=== PATIENT | female | born 1950 | race Hispanic/Latino ===

== ENCOUNTER 2018-03-11 18:47 | Emergency (ER) | payer MEDICARE, BC ==
[2018-03-11 18:52] VITALS: BMI 21.1
[2018-03-11 18:55] VITALS: TEMP 98.2
[2018-03-11] MEDS ORDERED: Sodium Chloride 0.9% 1,000 ML IV STA (19:12)
--- NOTE | 2018-03-11 19:17 | ED PDOC ---
Arrival/HPI - General Chief Complaint: GI Problem Time Seen by Provider: 03/11/18 18:57 Historian: Patient, Spouse - History of Present Illness Narrative History of Present Illness (Text): you were treated in the ED today for having nausea and loose stools intermittently for the past 3 days but otherwise without any new foods/travel/ sick contacts/headache/dizziness/difficulty breathing/chest pain/abdomen pain/ numbness/tingling/loss of limb function/pain with urination/blood in stools. 03/11/18 19:15 03/11/18 19:15 Time/Duration: Other (3 days) Symptom Onset: Gradual Symptom Course: Unchanged, Intermittent Quality: Other (no pain) Activities at Onset: Rest Context: Sitting Past Medical History - Provider Review Nursing Documentation Reviewed: Yes - Travel History Have you recently traveled outside [place] w/in the past 3 mons?: No - Infectious Disease Hx of Infectious Diseases: None - Reproductive Menopause: Yes - Cardiac Hx Hypertension: Yes Hx Peripheral Vascular Disease: Yes Other/Comment: pulmonary hypertension - Neurological Hx Paralysis: No - Hematological/Oncological Hx Blood Transfusions: No Hx Blood Transfusion Reaction: No - Musculoskeletal/Rheumatological Hx Musculoskeletal Disorders: No (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) - Psychiatric Hx Emotional Abuse: No Hx Physical Abuse: No Hx Substance Use: No - Surgical History Other/Comment: L lower lobe removal 3 years ago - Anesthesia Hx Anesthesia Reactions: Yes (OCC NAUSEA) Hx Malignant Hyperthermia: No - Suicidal Assessment Feels Threatened In Home Enviroment: No Family/Social History - Physician Review Nursing Documentation Reviewed: Yes Family/Social History: No Known Family HX Smoking Status: Never Smoked Hx Alcohol Use: No Hx Substance Use: No Allergies/Home Meds Allergies/Adverse Reactions: Allergies No Known Allergies Allergy (Verified 07/09/16 10:32) Home Medications: Home Meds Medication Instructions Recorded Confirmed Esomeprazole Magnesium [Nexium] 40 mg PO QAM 10/15/14 07/27/17 Rosuvastatin Calcium [Crestor] 10 mg PO QAM 10/15/14 07/27/17 amLODIPine [Norvasc] 5 mg PO QPM 10/15/14 07/27/17 Coenzyme Q10 [Co Q-10] 1 cap PO QAM 09/09/15 07/27/17 Aspirin [Adult Low Dose Aspirin EC] 81 mg PO QAM 06/22/16 07/27/17 Tadalafil [Adcirca] 40 mg PO QAM 06/22/16 07/27/17 Ambrisentan [Letairis] 10 mg PO DAILY 01/10/17 07/27/17 Cholecalciferol (Vitamin D3) 2,000 unit PO DAILY 01/10/17 07/27/17 [Vitamin D3] Methotrexate 20 mg PO DAILY 01/10/17 07/27/17 Review of Systems - Review of Systems Constitutional: Normal Eyes: Normal ENT: Normal Respiratory: Normal Cardiovascular: Normal Gastrointestinal: Stool Changes, Nausea Genitourinary Female: Normal Musculoskeletal: Normal Skin: Normal Neurological: Normal Endocrine: Normal Hemo/Lymphatic: Normal Psychiatric: Normal Physical Exam Vital Signs Reviewed: Yes Vital Signs Temp Pulse Resp BP Pulse Ox 03/11/18 20:32 98 H 22 121/78 99 03/11/18 18:48 98.2 F 108 H 20 115/74 96 Temperature: Afebrile Blood Pressure: Normal Pulse: Tachycardic Respiratory Rate: Normal Appearance: Positive for: Well-Appearing, Non-Toxic, Comfortable Pain Distress: None Mental Status: Positive for: Alert and Oriented X 3 - Systems Exam Head: Present: Atraumatic, Normocephalic Pupils: Present: PERRL Extroacular Muscles: Present: EOMI Conjunctiva: Present: Normal Ears: Present: Normal Mouth: Present: Moist Mucous Membranes Pharnyx: Present: Normal Nose (External): Present: Atraumatic Nose (Internal): Present: Normal Inspection Neck: Present: Normal Range of Motion Respiratory/Chest: Present: Clear to Auscultation, Good Air Exchange, Retracting Abdomen: No: Tenderness, Distention, Normal Bowel Sounds, Peritoneal Signs, Rebound, Guarding, McBurney's Point Tender, Rovsing's Sign Present, Hernias, Feeding Tubes, Ostomy Tubes, Mass/Organomegaly, Scars, Other Back: Present: Normal Inspection Upper Extremity: Present: Normal Inspection Lower Extremity: Present: Normal Inspection Neurological: Present: GCS=15, CN II-XII Intact, Speech Normal, Motor Func Grossly Intact Skin: Present: Warm, Normal Color Psychiatric: Present: Alert, Oriented x 3, Normal Insight, Normal Concentration Medical Decision Making ED Course and Treatment: you were treated in the ED today for hx of pulmonary hypertension, cholesterol, having nausea and loose stools intermittently for the past 3 days but otherwise without any new foods/travel/sick contacts/headache/dizziness/difficulty breathing/chest pain/abdomen pain/numbness/tingling/loss of limb function/pain with urination/blood in stools. You were otherwise breathing easily, pink moist lips, smiling and talking with your , good strength/sensation, alert/ oriented, walking easily, clear lungs, no abdomen tenderness, no fever temp 98.2 , fast heart rate 108 and repeat 98, stable breathing rate 20, excellent oxygen level 96% room air, stable blood pressure 115/74 which we recommend repeat in 2- 3 days primary care office to determine further treatment, you have blood tests no infection count 10, stable blood level hemoglobin 12/platelets 177, stable chemistry sodium low 129, potassium low 3.5, chloride low 95, liver AST elevated 45, Liver Alklaline Phosphatase elevated 130, magnesium low 1.4, calcium low 8.2, heart blood test negative 0.01, urine test no acute sign of infection, INR 1.77, ECG sinus rhythm with right bundle branch block, bifasicular block, intravenous fluids, zofran, magnesium, calcium, potassium, observation done and noted a low oxygen level transiently which you stated is due to your pulmonary hypertension, in the ED with improvement, had a long discussion about staying in the hospital for further observation/care/radiology imaging but you refused and cautioned for complications/ but you stated you feel improved, counselled to drink lots of fluids and advance diet as tolerated and wanted to go home with . 1. Recommend drink gatoroid and foods with minerals. 2. Recommend follow-up primary care 1-2 days to review symptoms, repeat INR and chemistry test to ensure improvement, and to ensure reduced and avoid physical activity till first clinic visit, referral to gastroenterology clinic to review symptoms and bilirubin in urine/elevated liver AST/Alkaline phosphatase to ensure no complications, referral to cardiology to review symptoms and ECG findings to ensure no complications, referral to urology clinic for protein/blood in urine to ensure no complications. 4. If any worsening pain, fever, chills, nausea, vomiting, difficulty breathing, numbness, loss of limb function, pain with urination or any medical condition then return to the ED. Reassessment Condition: Re-examined, Improved - Lab Interpretations Lab Results: 03/11/18 19:20 03/11/18 19:20 Lab Results 03/11/18 20:10: Urine Color Yellow, Urine Appearance Sl cloudy, Urine pH 5.5, Ur Specific [place] >= 1.030, Urine Protein 100 H, Urine Glucose (UA) Negative, Urine Ketones Negative, Urine Blood Large H, Urine Nitrate Negative, Urine Bilirubin Small H, Urine Urobilinogen 0.2, Ur Leukocyte Esterase Negative, Urine RBC 2 - 5, Urine WBC 5 - 10, Ur Epithelial Cells 1 - 3, Urine Bacteria Small 03/11/18 19:20: PT 20.4 H, INR 1.77 H, APTT 36.2 03/11/18 19:20: Sodium 129 L, Potassium 3.5 L, Chloride 95 L, Carbon Dioxide 21 , Anion Gap 16, BUN 16, Creatinine 0.8, Est GFR ( Amer) > 60, Est GFR ( Non-Af Amer) > 60, Random Glucose 141 H, Calcium 8.2 L, Magnesium 1.4 L, Total Bilirubin 0.7, AST 45 H, ALT 33, Alkaline Phosphatase 130 H, Lactate Dehydrogenase 874 H, Total Creatine Kinase 123, Troponin I < 0.01, Total Protein 7.0, Albumin 3.9, Globulin 3.1, Albumin/Globulin Ratio 1.2, Lipase 36 03/11/18 19:20: WBC 10.3 D, RBC 4.36, Hgb 12.3, Hct 38.8, MCV 89.0, MCH 28.2, MCHC 31.7, RDW 19.8 H, Plt Count 177, MPV 10.9, Gran % 82.6 H, Lymph % (Auto) 9.0 L, Sunflower % (Auto) 7.3 H, Eos % (Auto) 0.8 L, Baso % (Auto) 0.3, Gran # 8.55 H , Lymph # (Auto) 0.9 L, Sunflower # (Auto) 0.8 H, Eos # (Auto) 0.1, Baso # (Auto) 0.03 - Medication Orders Current Medication Orders: Lactated Ringer's (Lactated Ringer's) 1,000 mls @ 125 mls/hr IV .Q8H DILIP Discontinued Medications Sodium Chloride (Sodium Chloride 0.9%) 1,000 mls @ 999 mls/hr IV .Q1H1M STA Stop: 03/11/18 20:12 Last Admin: 03/11/18 19:40 Dose: 999 mls/hr eMAR Start Stop Document 03/11/18 19:40 GMD (Rec: 03/11/18 19:40 GMD [id number]) Intravenous Solution Start Date 03/11/18 Start Time 19:40 End Date 03/11/18 End time 20:41 Total Infusion Time 61 Calcium Gluconate 1,000 mg/ (Sodium Chloride) 110 mls @ 110 mls/hr IVPB ONCE ONE Stop: 03/11/18 21:41 Last Admin: 03/11/18 22:15 Dose: 110 mls/hr eMAR Start Stop Document 03/11/18 22:15 JOL (Rec: 03/11/18 22:16 JOL [id number]) Intravenous Solution Start Date 03/11/18 Start Time 22:15 End Date 03/11/18 End time 23:15 Total Infusion Time 60 Magnesium Sulfate/Dextrose (Magnesium Sulfate 1 Gm/100 Ml D5w) 1 gm in 100 mls @ 100 mls/hr IVPB ONCE ONE Stop: 03/11/18 21:41 Last Admin: 03/11/18 21:32 Dose: 100 mls/hr eMAR Start Stop Document 03/11/18 21:32 JOL (Rec: 03/11/18 21:32 JOL [id number]) Intravenous Solution Start Date 03/11/18 Start Time 21:32 End Date 03/11/18 End time 22:32 Total Infusion Time 60 Ondansetron HCl (Zofran Inj) 4 mg IVP STAT STA Stop: 03/11/18 19:15 Last Admin: 03/11/18 19:41 Dose: 4 mg IVP Administration Document 03/11/18 19:41 GMD (Rec: 03/11/18 19:41 GMD [id number]) Charges for Administration # of IVP Administrations 1 Potassium Chloride (K-Dur 20 Meq Er Tab) 40 meq PO STAT STA Stop: 03/11/18 20:42 Last Admin: 03/11/18 21:33 Dose: 40 meq Disposition/Present on Arrival - Present on Arrival Any Indicators Present on Arrival: No History of DVT/PE: No History of Uncontrolled Diabetes: No Urinary Catheter: No History of Decub. Ulcer: No History Surgical Site Infection Following: None - Disposition Have Diagnosis and Disposition been Completed?: Yes Diagnosis: Gastroenteritis, Hypokalemia, Hypomagnesemia, Hypocalcemia Disposition: AGAINST MEDICAL ADVICE Disposition Time: 22:47 Patient Problems: Current Active Problems Problem Status Onset Gastroenteritis Acute Hypocalcemia Acute Hypokalemia Acute Hypomagnesemia Acute Condition: IMPROVED Discharge Instructions (ExitCare): Diarrhea in Adolescents and Adults, Hypocalcemia, Hypokalemia (DC), Low Magnesium Level (DC), Gastroenteritis (ED), High Potassium Diet Additional Instructions: you were treated in the ED today for hx of pulmonary hypertension, cholesterol, having nausea and loose stools intermittently for the past 3 days but otherwise without any new foods/travel/sick contacts/headache/dizziness/difficulty breathing/chest pain/abdomen pain/numbness/tingling/loss of limb function/pain with urination/blood in stools. You were otherwise breathing easily, pink moist lips, smiling and talking with your , good strength/sensation, alert/ oriented, walking easily, clear lungs, no abdomen tenderness, no fever temp 98.2 , fast heart rate 108 and repeat 98, stable breathing rate 20, excellent oxygen level 96% room air, stable blood pressure 115/74 which we recommend repeat in 2- 3 days primary care office to determine further treatment, you have blood tests no infection count 10, stable blood level hemoglobin 12/platelets 177, stable chemistry sodium low 129, potassium low 3.5, chloride low 95, liver AST elevated 45, Liver Alklaline Phosphatase elevated 130, magnesium low 1.4, calcium low 8.2, heart blood test negative 0.01, urine test no acute sign of infection, INR 1.77, ECG sinus rhythm with right bundle branch block, bifasicular block, intravenous fluids, zofran, magnesium, calcium, potassium, observation done and noted a low oxygen level transiently which you stated is due to your pulmonary hypertension, in the ED with improvement, had a long discussion about staying in the hospital for further observation/care/radiology imaging but you refused and cautioned for complications/ but you stated you feel improved, counselled to drink lots of fluids and advance diet as tolerated and wanted to go home with . 1. Recommend drink gatoraid and foods with minerals. 2. Recommend follow-up primary care 1-2 days to review symptoms, repeat INR and chemistry test to ensure improvement, and to ensure reduced and avoid physical activity till first clinic visit, referral to gastroenterology clinic to review symptoms and bilirubin in urine/elevated liver AST/Alkaline phosphatase to ensure no complications, referral to cardiology to review symptoms and ECG findings to ensure no complications, referral to urology clinic for protein/blood in urine to ensure no complications. 4. If any worsening pain, fever, chills, nausea, vomiting, difficulty breathing, numbness, loss of limb function, pain with urination or any medical condition then return to the ED. Referrals: Sivakumar Kirby MD [Primary Care Provider] - Follow up with primary Forms: [email or web address] [facility] (Dominican)
[2018-03-11 19:50] LABS: BASO # 0.03 K/mm3 (0.0-2.0); BASO % 0.3 % (0.0-3.0); EOS # 0.1 (0.0-0.7); EOS % 0.8 % (1.5-5.0); GRAN # 8.55 (1.4-6.5); GRAN % 82.6 % (50.0-68.0); HEMOGLOBIN 12.3 g/dL (12.0-16.0); LYMPH # 0.9 (1.2-3.4); MEAN CORPUSCULAR HEMOGLOBIN 28.2 pg (25.0-35.0); MEAN CORPUSCULAR HGB CONC 31.7 g/dl (31.0-37.0); MEAN PLATELET VOLUME 10.9 fl (7.0-11.0); MONO # 0.8 (0.1-0.6); MONO % 7.3 % (1.0-6.0); RBC 4.36 10^6/uL (3.5-6.1); RED CELL DISTRIBUTION WIDTH 19.8 % (11.5-14.5); WHITE BLOOD COUNT 10.3 10^3/ul (4.5-11.0)
[2018-03-11 19:56] LABS: INR 1.77 (0.93-1.08); PARTIAL THROMBOPLASTIN TIME 36.2 Seconds (25.1-36.5); PROTHROMBIN TIME 20.4 SECONDS (9.4-12.5)
[2018-03-11 20:24] LABS: ALB/GLOB RATIO 1.2 (1.1-1.8); ALBUMIN 3.9 g/dL (3.0-4.8); ALT/SGPT 33 U/L (7-56); AST/SGOT 45 U/L (14-36); BLOOD UREA NITROGEN 16 mg/dL (7-21); CALCIUM 8.2 mg/dL (8.4-10.5); GFR AFRICAN-AMERICAN > 60; GFR NON-AFRICAN AMERICAN > 60; LIPASE 36 U/L (23-300)
[2018-03-11 20:32] LABS: PH,URINE 5.5 (4.7-8.0); URINE BILIRUBIN SMALL (NEGATIVE); URINE BLOOD LARGE (NEGATIVE); URINE GLUCOSE (UA) NEGATIVE (NEGATIVE); URINE LEUKOCYTE ESTERASE NEGATIVE Leu/uL (NEGATIVE); URINE PROTEIN 100 mg/dL (<30 mg/dL); URINE UROBILINOGEN 0.2 E.U./dL (<1 E.U./dL)
[2018-03-11 20:33] VITALS: BP 121/78; PULSE 98; RESP 22; O2SAT 99
[2018-03-11 20:33] LABS: URINE COLOR YELLOW (YELLOW)
[2018-03-11 20:34] LABS: URINE APPEARANCE SL CLOUDY (CLEAR)
[2018-03-11 20:36] LABS: TROPONIN I < 0.01 ng/mL
[2018-03-11] MEDS ORDERED: Potassium Chloride 20 mEq ER Tab PO STA (20:41)
[2018-03-11] MEDS ORDERED: Magnesium Sulfate 1 gm in D5W 1 GM/100 ML BAG IVPB ONE (20:42)
[2018-03-11 20:45] LABS: URINE BACTERIA SMALL (NEG)
[2018-03-11] MEDS ORDERED: Lactated Ringer's 1,000 ML IV SCH (20:45)
--- NOTE | 2018-03-12 21:44 | CARD ---
APPROVED REPORT EKG Measurement Heart [id number] <Conclusion> Sinus rhythm with premature atrial complexes Possible Left atrial enlargement Right bundle branch block Left posterior fascicular block Bifascicular block Anteroseptal infarct, age undetermined T wave abnormality, consider inferolateral ischemia Abnormal ECG
== END 2018-03-11 23:25 | disposition left against medical advice (07) ==
LOC: ED 18:47
DX: K52.9 Noninfective gastroenteritis and colitis, unspecified (principal); E87.6 Hypokalemia; E83.42 Hypomagnesemia; E83.51 Hypocalcemia; I10 Essential (primary) hypertension
CPT/HCPCS: 80053; 81001; 82550; 83615; 83690; 83735; 84484; 85025; 85610; 85730; 87086; 93005; 96361; 96365; 96367; 96375; 99285; J0610; J2405; J3475; J7040

== ENCOUNTER 2018-03-15 18:49 | Inpatient (IN) | payer MEDICARE, BC ==
[2018-03-15 18:50] VITALS: BMI 21.1
--- NOTE | 2018-03-15 20:22 | ED PDOC ---
Arrival/HPI - General Chief Complaint: GI Problem Time Seen by Provider: 03/15/18 18:54 Historian: Patient - History of Present Illness Narrative History of Present Illness (Text): you were treated in the ED today fo persistent diarrhea without bile or blood and sent by primary care physician for evaluation otherwise without any nausea/ vomiting/headache/dizziness/difficulty breathing/chest pain/abdomen pain/ numbness/tingling/loss of limb function/pain with urination. 03/15/18 20:22 Time/Duration: 1 week Symptom Onset: Gradual Symptom Course: Unchanged Quality: Other (no pain) Activities at Onset: Rest Context: Sitting Past Medical History - Provider Review Nursing Documentation Reviewed: Yes - Travel History Have you recently traveled outside [place] w/in the past 3 mons?: No - Infectious Disease Hx of Infectious Diseases: None - Cardiac Hx Hypertension: Yes Hx Peripheral Vascular Disease: Yes Other/Comment: pulmonary hypertension - Neurological Hx Paralysis: No - Hematological/Oncological Hx Blood Transfusions: No Hx Blood Transfusion Reaction: No - Musculoskeletal/Rheumatological Hx Musculoskeletal Disorders: No (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) - Psychiatric Hx Emotional Abuse: No Hx Physical Abuse: No Hx Substance Use: No - Surgical History Other/Comment: L lower lobe removal 3 years ago - Anesthesia Hx Anesthesia Reactions: Yes (OCC NAUSEA) Hx Malignant Hyperthermia: No - Suicidal Assessment Feels Threatened In Home Enviroment: No Family/Social History - Physician Review Nursing Documentation Reviewed: Yes Family/Social History: No Known Family HX Smoking Status: Never Smoked Hx Alcohol Use: No Hx Substance Use: No Allergies/Home Meds Allergies/Adverse Reactions: Allergies No Known Allergies Allergy (Verified 07/09/16 10:32) Home Medications: Home Meds Medication Instructions Recorded Confirmed Esomeprazole Magnesium [Nexium] 40 mg PO QAM 10/15/14 03/15/18 Rosuvastatin Calcium [Crestor] 10 mg PO QAM 10/15/14 03/15/18 amLODIPine [Norvasc] 5 mg PO QPM 10/15/14 03/15/18 Coenzyme Q10 [Co Q-10] 1 cap PO QAM 09/09/15 03/15/18 Aspirin [Adult Low Dose Aspirin EC] 81 mg PO QAM 06/22/16 03/15/18 Tadalafil [Adcirca] 40 mg PO QAM 06/22/16 03/15/18 Ambrisentan [Letairis] 10 mg PO DAILY 01/10/17 03/15/18 Cholecalciferol (Vitamin D3) 2,000 unit PO DAILY 01/10/17 03/15/18 [Vitamin D3] Methotrexate 20 mg PO DAILY 01/10/17 03/15/18 Review of Systems - Review of Systems Constitutional: Normal Eyes: Normal ENT: Normal Respiratory: Normal Cardiovascular: Normal Gastrointestinal: Diarrhea Genitourinary Female: Normal Musculoskeletal: Normal Skin: Normal Neurological: Normal Endocrine: Normal Hemo/Lymphatic: Normal Psychiatric: Normal Physical Exam Vital Signs Reviewed: Yes Vital Signs Temp Pulse Resp BP Pulse Ox 03/15/18 20:44 77 19 119/66 95 03/15/18 20:20 98.1 F 83 18 120/70 99 03/15/18 19:01 97.7 F 84 18 128/69 98 Temperature: Afebrile Blood Pressure: Hypertensive Pulse: Regular Respiratory Rate: Normal Appearance: Positive for: Well-Appearing, Non-Toxic, Comfortable Pain Distress: None Mental Status: Positive for: Alert and Oriented X 3 - Systems Exam Head: Present: Atraumatic, Normocephalic Pupils: Present: PERRL Extroacular Muscles: Present: EOMI Conjunctiva: Present: Normal Ears: Present: Normal Mouth: Present: Moist Mucous Membranes Pharnyx: Present: Normal Nose (External): Present: Atraumatic Nose (Internal): Present: Normal Inspection Neck: Present: Normal Range of Motion Respiratory/Chest: Present: Clear to Auscultation, Good Air Exchange Cardiovascular: Present: Regular Rate and Rhythm Abdomen: No: Tenderness, Distention, Normal Bowel Sounds, Peritoneal Signs, Rebound, Guarding, McBurney's Point Tender, Rovsing's Sign Present, Hernias, Feeding Tubes, Ostomy Tubes, Mass/Organomegaly, Scars, Other Back: Present: Normal Inspection Upper Extremity: Present: Normal Inspection Lower Extremity: Present: Normal Inspection Neurological: Present: GCS=15, CN II-XII Intact, Speech Normal, Motor Func Grossly Intact Skin: Present: Warm, Normal Color Psychiatric: Present: Alert, Oriented x 3, Normal Insight, Normal Concentration Medical Decision Making ED Course and Treatment: you were treated in the ED today fo persistent diarrhea without bile or blood and sent by primary care physician for evaluation otherwise without any nausea/ vomiting/headache/dizziness/difficulty breathing/chest pain/abdomen pain/ numbness/tingling/loss of limb function/pain with urination. You were otherwise breathing easily, smiling and talking easily, good strength/sensation, walking easily, clear lungs, no abdomen tenderness, pink lips, no fever temp 97.7, stable heart rate 84, stable breathing rate 18, excellent oxygen level 98% room air, elevated blood pressure 128/69 which we recommend repeat in 2-3 days primary care office to determine further treatment, you have blood tests no infection count 5, stable blood level hemoglobin 11/platelets 187, stable chemistry sodium 131 mildly low with iv fluids, potassium 3.1 mildly low and replaced, chloride 97 mildly low and iv fluids given, lipase mildly elevated 389 , heart blood test stable 0.03, stool studies pending with Dr. Bay, radiology ct abdomen/pelvis colitis, ECG similar to prior, intravenous fluids, flagyl, observation done in the ED with improvement. d/w Dr. Barriga who accepted the patient for admission, dehydration, electrolyte management. CT a/p: FINDINGS: LUNG BASES: No significant abnormality seen. PLEURAL SPACE: Stable appearance of an approximately 5 x 2 cm pleural collection in the left lung base, incompletely seen on this exam. This has enhancing margins. It does not contain gas. There is adjacent pleural thickening, which appears smooth. HEART: Heart appears moderately enlarged. Enlargement of the intrahepatic IVC and the hepatic veins. Findings can be seen in the setting of right-sided heart dysfunction. ABDOMEN: LIVER: See above. No acute abnormality identified. GALLBLADDER AND BILE DUCTS: Fluid adjacent to the gallbladder. This is most likely related to the generalized abdominal free fluid rather than representing pericholecystic fluid secondary to acute cholecystitis. No radioopaque gallstones. PANCREAS: No CT evidence of acute pancreatitis. SPLEEN: Mild splenomegaly, with the spleen measuring 14 cm. ADRENALS: No acute abnormality of the adrenal glands identified. KIDNEYS AND URETERS: Incidental multiple small fluid density probable cystic left renal lesions, all measuring less than 10 mm. (Consistent with the [employer]'s Incidental Findings Committee Report, unless the patient's specific circumstances suggest otherwise, any cystic kidney lesion less than 1.0 cm not otherwise characterized in this report as possessing suspicious or indeterminate imaging features is/are highly likely to be benign and do not require follow-up imaging or biopsy.) No acute abnormality of the kidneys identified. STOMACH AND BOWEL: Findings highly suspicious for colitis, involving the left hemicolon. There is moderate, diffuse diffuse wall thickening of the left colon. Wall thickening of the distal stomach, which could be secondary to underdistention versus focal gastritis. Colonic diverticulosis, with no evidence of acute diverticulitis. Otherwise, no significant abnormality of the bowel is identified. No evidence of small bowel obstruction. No evidence of pneumatosis intestinalis. PELVIS: APPENDIX: Normal appendix is not seen, and there is a reported history of previous appendectomy. BLADDER: No acute abnormality of the bladder identified. REPRODUCTIVE: Uterus is surgically absent. No evidence of large adnexal masses. ABDOMEN and PELVIS: INTRAPERITONEAL SPACE: Small to moderate amount of abdominal and pelvic fluid. No evidence of free air. BONES/JOINTS: Bony structures appear demineralized. SOFT TISSUES: Mild, subcutaneous edema/anasarca. VASCULATURE: Atherosclerotic calcification. No evidence of abdominal aortic aneurysm. LYMPH NODES: No evidence of diffuse lymphadenopathy. IMPRESSION: - Small to moderate amount of free fluid. - Findings highly suspicious for colitis, involving the left hemicolon. - Wall thickening of the distal stomach, which could be secondary to underdistention versus focal gastritis. - Mild, subcutaneous edema/anasarca. - Otherwise, no evidence of significant acute process. - Pleural collection with enhancing margins in the left lung base, stable compared to a prior CT chest of 02/22/2018. This could represent a chronic hemothorax or other chronic pleural collection. No associated gas. - See above for remaining findings 03/15/18 23:41 Reassessment Condition: Re-examined, Improved - Lab Interpretations Lab Results: 03/15/18 20:10 03/15/18 20:10 Lab Results 03/15/18 20:10: Sodium 131 L, Potassium 3.1 L, Chloride 97 L, Carbon Dioxide 23 , Anion Gap 13, BUN 17, Creatinine 0.7, Est GFR ( Amer) > 60, Est GFR ( Non-Af Amer) > 60, Random Glucose 112 H, Calcium 8.2 L, Total Bilirubin 0.4, AST 35, ALT 31, Alkaline Phosphatase 122, Total Creatine Kinase 145, Troponin I 0.03 D, Total Protein 6.1, Albumin 3.2, Globulin 3.0, Albumin/Globulin Ratio 1.1, Lipase 389 H 03/15/18 20:10: PT 16.2 H, INR 1.41 H, APTT 33.1 03/15/18 20:10: WBC 5.6 D, RBC 4.06, Hgb 11.3 L, Hct 34.8 L, MCV 85.7 D, MCH 27.8, MCHC 32.5, RDW 19.3 H, Plt Count 187, MPV 9.8, Gran % 63.4, Lymph % (Auto ) 21.4 L, Elk % (Auto) 9.6 H, Eos % (Auto) 5.2 H, Baso % (Auto) 0.4, Gran # 3.57, Lymph # (Auto) 1.2, Elk # (Auto) 0.5, Eos # (Auto) 0.3, Baso # (Auto) 0.02 I have reviewed the lab results: Yes - RAD Interpretation Radiology Orders: 03/15/18 21:06 ABDOMEN & PELVIS [ABD & PELVIS IV CONTRAST ONLY] [CT] Stat Clinical Documentation Specialist: Radiologist - EKG Interpretation Interpreted by ED Physician: Yes (normal sinus rhythm) Type: 12 lead EKG Comparison: Similar to previous EKG (03/11/18) - Medication Orders Current Medication Orders: Metronidazole (Flagyl) 500 mg in 100 mls @ 100 mls/hr IVPB STAT STA PRN Reason: Protocol Stop: 03/16/18 00:29 Discontinued Medications Potassium Chloride (K-Dur 20 Meq Er Tab) 40 meq PO STAT STA Stop: 03/15/18 21:34 Last Admin: 03/15/18 22:15 Dose: 40 meq Potassium Chloride (K-Dur 20 Meq Er Tab) 40 meq PO STAT STA Stop: 03/15/18 23:35 Disposition/Present on Arrival - Present on Arrival Any Indicators Present on Arrival: No History of DVT/PE: No History of Uncontrolled Diabetes: No Urinary Catheter: No History of Decub. Ulcer: No History Surgical Site Infection Following: None - Disposition Have Diagnosis and Disposition been Completed?: Yes Diagnosis: Colitis, Dehydration, Hypokalemia, Hyponatremia Disposition: HOSPITALIZED Disposition Time: 23:45 Patient Plan: Admission Condition: IMPROVED Referrals: Sivakumar Kirby MD [Primary Care Provider] - Follow up with primary Forms: [employer] ([place])
[2018-03-15 20:28] LABS: BASO # 0.02 K/mm3 (0.0-2.0); BASO % 0.4 % (0.0-3.0); EOS # 0.3 (0.0-0.7); EOS % 5.2 % (1.5-5.0); GRAN # 3.57 (1.4-6.5); GRAN % 63.4 % (50.0-68.0); HEMOGLOBIN 11.3 g/dL (12.0-16.0); LYMPH # 1.2 (1.2-3.4); LYMPH % 21.4 % (22.0-35.0); MEAN CELL VOLUME 85.7 fl (80.0-105.0); MEAN CORPUSCULAR HEMOGLOBIN 27.8 pg (25.0-35.0); MEAN CORPUSCULAR HGB CONC 32.5 g/dl (31.0-37.0); MEAN PLATELET VOLUME 9.8 fl (7.0-11.0); MONO # 0.5 (0.1-0.6); MONO % 9.6 % (1.0-6.0); RBC 4.06 10^6/uL (3.5-6.1); RED CELL DISTRIBUTION WIDTH 19.3 % (11.5-14.5); WHITE BLOOD COUNT 5.6 10^3/ul (4.5-11.0)
[2018-03-15 20:38] LABS: INR 1.41 (0.93-1.08); PROTHROMBIN TIME 16.2 SECONDS (9.4-12.5)
[2018-03-15 20:39] LABS: PARTIAL THROMBOPLASTIN TIME 33.1 Seconds (25.1-36.5)
[2018-03-15 20:47] LABS: TROPONIN I 0.03 ng/mL
[2018-03-15 20:53] LABS: ALB/GLOB RATIO 1.1 (1.1-1.8); ALBUMIN 3.2 g/dL (3.0-4.8); ALT/SGPT 31 U/L (7-56); AST/SGOT 35 U/L (14-36); BLOOD UREA NITROGEN 17 mg/dL (7-21); CALCIUM 8.2 mg/dL (8.4-10.5); GFR AFRICAN-AMERICAN > 60; GFR NON-AFRICAN AMERICAN > 60; LIPASE 389 U/L (23-300)
[2018-03-15] MEDS ORDERED: Iohexol 350 MG/100 ML VIAL ONE (21:15)
[2018-03-15] MEDS ORDERED: Potassium Chloride 20 mEq ER Tab PO STA ×2 (21:33→23:34)
--- NOTE | 2018-03-15 23:13 | CT ---
EXAM: CT Abdomen and Pelvis With Intravenous Contrast EXAM DATE/TIME: 03/15/2018 9:06 PM CLINICAL HISTORY: 67 years old, female; Signs and symptoms; Other: Diarrhea; Prior surgery; Surgery date: 6+ months; Surgery type: HX appendectomy; Additional info: 67yof loose stools, elevated lipase. TECHNIQUE: Axial computed tomography images of the abdomen and pelvis with intravenous contrast. All CT scans at this facility use one or more dose reduction techniques, viz.: automated exposure control; ma/kV adjustment per patient size (including targeted exams where dose is matched to indication; i.e. head); or iterative reconstruction technique. Coronal and sagittal reformatted images were created and reviewed. CONTRAST: 100 mL of Omnipaque 350 administered intravenously. COMPARISON: Prior CT chest of FINDINGS: LUNG BASES: No significant abnormality seen. PLEURAL SPACE: Stable appearance of an approximately 5 x 2 cm pleural collection in the left lung base, incompletely seen on this exam. This has enhancing margins. It does not contain gas. There is adjacent pleural thickening, which appears smooth. HEART: Heart appears moderately enlarged. Enlargement of the intrahepatic IVC and the hepatic veins. Findings can be seen in the setting of right-sided heart dysfunction. ABDOMEN: LIVER: See above. No acute abnormality identified. GALLBLADDER AND BILE DUCTS: Fluid adjacent to the gallbladder. This is most likely related to the generalized abdominal free fluid rather than representing pericholecystic fluid secondary to acute cholecystitis. No radioopaque gallstones. PANCREAS: No CT evidence of acute pancreatitis. SPLEEN: Mild splenomegaly, with the spleen measuring 14 cm. ADRENALS: No acute abnormality of the adrenal glands identified. KIDNEYS AND URETERS: Incidental multiple small fluid density probable cystic left renal lesions, all measuring less than 10 mm. (Consistent with the [employer]?s Incidental Findings Committee Report, unless the patient?s specific circumstances suggest otherwise, any cystic kidney lesion less than 1.0 cm not otherwise characterized in this report as possessing suspicious or indeterminate imaging features is/are highly likely to be benign and do not require follow-up imaging or biopsy.) No acute abnormality of the kidneys identified. STOMACH AND BOWEL: Findings highly suspicious for colitis, involving the left hemicolon. There is moderate, diffuse diffuse wall thickening of the left colon. Wall thickening of the distal stomach, which could be secondary to underdistention versus focal gastritis. Colonic diverticulosis, with no evidence of acute diverticulitis. Otherwise, no significant abnormality of the bowel is identified. No evidence of small bowel obstruction. No evidence of pneumatosis intestinalis. PELVIS: APPENDIX: Normal appendix is not seen, and there is a reported history of previous appendectomy. BLADDER: No acute abnormality of the bladder identified. REPRODUCTIVE: Uterus is surgically absent. No evidence of large adnexal masses. ABDOMEN and PELVIS: INTRAPERITONEAL SPACE: Small to moderate amount of abdominal and pelvic fluid. No evidence of free air. BONES/JOINTS: Bony structures appear demineralized. SOFT TISSUES: Mild, subcutaneous edema/anasarca. VASCULATURE: Atherosclerotic calcification. No evidence of abdominal aortic aneurysm. LYMPH NODES: No evidence of diffuse lymphadenopathy. IMPRESSION: - Small to moderate amount of free fluid. - Findings highly suspicious for colitis, involving the left hemicolon. - Wall thickening of the distal stomach, which could be secondary to underdistention versus focal gastritis. - Mild, subcutaneous edema/anasarca. - Otherwise, no evidence of significant acute process. - Pleural collection with enhancing margins in the left lung base, stable compared to a prior CT chest of 02/22/2018. This could represent a chronic hemothorax or other chronic pleural collection. No associated gas. - See above for remaining findings.
[2018-03-15] MEDS ORDERED: metroNIDAZOLE IV 500 mg/100 ml 500 MG/100 ML BAG IVPB STA (23:30)
[2018-03-15] MEDS ORDERED: Lactated Ringer's 1,000 ML IV SCH (23:45)
--- NOTE | 2018-03-16 01:33 | CP.PCM.HP ---
"<Kris Ya - Last Filed: 03/16/18 02:53> History of Present Illness - History of Present Illness History of Present Illness: Patient is a 67 year old female with a PMHx of severe Pulmonary HTN, venous stasis, scleroderma and rheumatoid arthritis who presents complaining of diarrhea x 6 days. Patient states the diarrhea started on Tuesday. It is associated with sharp abdominal pain when she is about to have a bowel movement. Patient tried Immodium and Pepto-Bismol for her symptoms without any relief. Patient went [facility] for the pain when it started. Per the E.R doctor, the patient refused CT abdomen/pelvis at the time. Patient was discharged from the E.R and sent home to follow up with her PMD (Dr. Kirby ) which she did. Stool samples were collected from her primary, but her primary decided that she should go to the E.R again for further evaluation. Patient did state she had one bowel movement in which she saw a red mucous substance but denies seeing anything abnormal in subsequent bowel movements. Patient denies any fever, chills, sick contacts, recent travel, changes in diet , recent antibiotic use, chronic NSAID use, or urinary symptoms. Of note, patient states that her abdomen has been more distended within the last couple of months. ROS: As stated above PMHx: Severe Pulmonary HTN, Venous Stasis, Scleroderma, Anemia PSHx: Left lower lobe lobectomy, Appendectomy Allergies: NKDA SocialHx: Denies tobacco, alcohol, or illicit drug use. FamHx: Diabetes/Heart disease in mother and father Meds: Reviewed. Anti-Pulm HTN meds not in formulary. Goes to physician weekly for PRN ProCrit. PMD: Dr. Kirby Present on Admission - Present on Admission Any Indicators Present on Admission: No Review of Systems - Review of Systems All systems: reviewed and no additional remarkable complaints except Review of Systems: As per HPI Past Patient History - Infectious Disease Hx of Infectious Diseases: None - Past Social History Smoking Status: Never Smoked - CARDIAC Hx Hypertension: Yes Hx Peripheral Vascular Disease: Yes Other/Comment: pulmonary hypertension - NEUROLOGICAL Hx Paralysis: No - HEMATOLOGICAL/ONCOLOGICAL Hx Blood Transfusions: No Hx Blood Transfusion Reaction: No - MUSCULOSKELETAL/RHEUMATOLOGICAL Hx Musculoskeletal Disorders: No (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) - PSYCHIATRIC Hx Emotional Abuse: No Hx Physical Abuse: No Hx Substance Use: No - SURGICAL HISTORY Other/Comment: L lower lobe removal 3 years ago - ANESTHESIA Hx Anesthesia Reactions: Yes (OCC NAUSEA) Hx Malignant Hyperthermia: No Meds Allergies/Adverse Reactions: Allergies Allergy/AdvReac Type Severity Reaction Status Date / Time No Known Allergies Allergy Verified 07/09/16 10:32 Physical Exam - Constitutional Appears: Non-toxic, No Acute Distress - Head Exam Head Exam: ATRAUMATIC, NORMOCEPHALIC - Eye Exam Eye Exam: Normal appearance. absent: Scleral icterus - ENT Exam ENT Exam: Mucous Membranes Moist - Neck Exam Neck exam: Negative for: Lymphadenopathy (No Cervical or supracavicular lymphadenopathy ) - Respiratory Exam Respiratory Exam: Decreased Breath Sounds (Left Lower Lung. ), Clear to Auscultation Bilateral, NORMAL BREATHING PATTERN. absent: Accessory Muscle Use , Rales, Rhonchi, Wheezes - Cardiovascular Exam Cardiovascular Exam: RRR, +S1, +S2 (Prominent ). absent: Clicks, Diastolic murmur, JVD, Rubs, +S4, Systolic Murmur - GI/Abdominal Exam GI & Abdominal Exam: Distended, Normal Bowel Sounds, Soft. absent: Firm, Guarding, Mass, Organomegaly (No Palpable Organomegaly ), Rebound, Tenderness - Extremities Exam Extremities exam: Negative for: pedal edema - Neurological Exam Neurological exam: Alert, Oriented x3 - Psychiatric Exam Psychiatric exam: Normal Affect, Normal Mood - Skin Skin Exam: Dry, Intact Additional comments: Dry, Scaly, Diffuse Purpura and Ecchymosis Results - Vital Signs Recent Vital Signs: Last Vital Signs Temp 97.9 F 03/16/18 01:23 Pulse 82 03/16/18 01:23 Resp 20 03/16/18 01:23 BP 92/52 L 03/16/18 01:23 Pulse Ox 96 03/16/18 01:23 - Labs Result Diagrams: 03/15/18 20:10 03/15/18 20:10 Assessment & Plan - Assessment and Plan (Free Text) Assessment: 67 year old female with a PMHx of severe Pulmonary HTN, venous stasis, scleroderma and rheumatoid arthritis admitted for evaluation and treatment of intractable diarrhea. CT ABD/PELVIS (ADM): Small to moderate amount of free fluid | Findings highly suspicious for colitis , involving the left hemicolon. Wall thickening of the distal stomach, which could be secondary to underdistention versus focal gastritis. Mild, subcutaneous edema/anasarca. Otherwise, no evidence of significant acute process. Pleural collection with enhancing margins in the left lung base, stable compared to a prior CT chest of 02/22/2018. This could represent a chronic hemothorax or other chronic pleural collection. No associated gas. - See Report for remaining finds. Plan: Intractable Diarrhea. DDx: Viral/Bacterial vs ischemic colits vs Malabsorption syndrome, Food Poisoning. CT Abd/Pelvis consistent with Colitis of left Ilan-diaphragm. See report for further information. ED: Flagyl, LR Stool Cultures/C.Diff/Blood Flagyl 500 Q8 Toradol PRN for pain Lactated Ringers @ 100mls/hr Electrolyte Abnormalities 2/2 diarrhea 40meQ Potassium given in E.R. Replenish as needed Monitor Anemia (Chronic) Patient has a history of Anemia in which she takes ProCrit for at times Iron | TIBC | Ferritin | Retic Count | Haptoglobin | B12/Folate| Peripheral Smear Hx of Autoimmune Disease (Scleroderma/Rheumatoid Arthritis) Toradol PRN for Pain Home Methotrexate 20mg PO Daily Lipitor 40mg Daily, Home Statin not in formulary. Hx of Pulm HTN Home Tadalafil 20mg QAM Home Ambrisentan 10mg Daily Drugs are not in formulary. Patient brought from Home Home Norvasc 5 QPM Proph Protonix/SCD's Consider Lovenox if Stool Occult is negative NPO Diet Patient discussed with Attending (Dr. Barriga) Kris Ya, PGY-1 <Daniela Barriga - Last Filed: 03/16/18 05:32> Results - Vital Signs Recent Vital Signs: Last Vital Signs Temp 98 F 03/16/18 02:37 Pulse 80 03/16/18 02:37 Resp 20 03/16/18 02:37 BP 114/66 03/16/18 02:37 Pulse Ox 98 03/16/18 01:38 - Labs Result Diagrams: 03/15/18 20:10 03/15/18 20:10 Attending/Attestation - Attestation I have personally seen and examined this patient.: Yes I have fully participated in the care of the patient.: Yes I have reviewed all pertinent clinical information: Yes Notes (Text): 04/26/18 05:16 Patient was seen when she was in 02. Agree with history, physical examination, assessment and plan. Following should be noted. Intractable diarrhoea. Pain with bowel movement. Colitis. Elevated lipase level. Electrolyte imbalance. Chronic anemia. Rheumatoid arthritis. Scleroderma. History pulmonary hypertension. Hypokalemia. Hyponatremia. History left lower lobe Lobectomy. History appendectomy. Family history DM. Family history HTN. On Letairis and Adcirca for Pulmoanry HTN."
[2018-03-16] MEDS ORDERED: Pneumococcal 23-Valent Vaccine IM ONE (02:46)
[2018-03-16 03:51] LABS: TOTAL IRON BINDING CAPACITY 196 ug/dL (265-497)
[2018-03-16 04:19] LABS: IRON 18 ug/dL (45-180)
[2018-03-16 04:21] LABS: % IRON SATURATION 9 % (20-55)
[2018-03-16] MEDS ORDERED: Dextrose 5%/0.9% NS 1,000 ML IV SCH (05:30)
[2018-03-16] MEDS ORDERED: metroNIDAZOLE IV 500 mg/100 ml 500 MG/100 ML BAG IVPB SCH (06:00)
[2018-03-16 07:17] LABS: BASO # 0.04 K/mm3 (0.0-2.0); BASO % 0.8 % (0.0-3.0); EOS # 0.3 (0.0-0.7); EOS % 7.1 % (1.5-5.0); GRAN # 2.84 (1.4-6.5); GRAN % 59.2 % (50.0-68.0); HEMOGLOBIN 11.2 g/dL (12.0-16.0); LYMPH # 0.5 (1.2-3.4); LYMPH % 10.2 % (22.0-35.0); MEAN CELL VOLUME 85.2 fl (80.0-105.0); MEAN CORPUSCULAR HEMOGLOBIN 27.3 pg (25.0-35.0); MEAN PLATELET VOLUME 9.4 fl (7.0-11.0); MONO # 1.1 (0.1-0.6); MONO % 22.7 % (1.0-6.0); RBC 4.11 10^6/uL (3.5-6.1); RED CELL DISTRIBUTION WIDTH 19.6 % (11.5-14.5); WHITE BLOOD COUNT 4.8 10^3/ul (4.5-11.0)
[2018-03-16 07:19] LABS: BASO # 0.03 K/mm3 (0.0-2.0); BASO % 0.6 % (0.0-3.0); EOS # 0.3 (0.0-0.7); GRAN # 2.76 (1.4-6.5); GRAN % 58.9 % (50.0-68.0); HEMOGLOBIN 11.2 g/dL (12.0-16.0); LYMPH # 0.5 (1.2-3.4); LYMPH % 11.5 % (22.0-35.0); MEAN CELL VOLUME 85.3 fl (80.0-105.0); MEAN CORPUSCULAR HEMOGLOBIN 27.1 pg (25.0-35.0); MEAN CORPUSCULAR HGB CONC 31.7 g/dl (31.0-37.0); MEAN PLATELET VOLUME 9.3 fl (7.0-11.0); PLATELET COUNT 184 10^3/uL (120.0-450.0); RBC 4.14 10^6/uL (3.5-6.1); RED CELL DISTRIBUTION WIDTH 19.5 % (11.5-14.5); WHITE BLOOD COUNT 4.7 10^3/ul (4.5-11.0)
[2018-03-16 07:43] LABS: ALBUMIN 2.9 g/dL (3.0-4.8); ALT/SGPT 26 U/L (7-56); AST/SGOT 40 U/L (14-36); BLOOD UREA NITROGEN 13 mg/dL (7-21); GFR AFRICAN-AMERICAN > 60; GFR NON-AFRICAN AMERICAN > 60
[2018-03-16] MEDS ORDERED: Potassium Chloride 20 mEq ER Tab PO STA (08:43)
[2018-03-16 09:10] LABS: BAND 1 % (0-2); EOSINOPHIL 9 % (0.0-3.0); LYMPHOCYTE 14 % (22.0-35.0); MONOCYTE 16 % (1.0-6.0); NEUTROPHIL 60 % (50.0-70.0)
[2018-03-16 09:11] LABS: ANISOCYTOSIS SLIGHT; PLATELET ESTIMATE NORMAL (NORMAL); POIKILOCYTOSIS SLIGHT
[2018-03-16 09:14] LABS: SCHISTOCYTES SLIGHT
[2018-03-16] MEDS: Cholecalciferol 1,000 INTLU TAB PO SCH (09:51)
[2018-03-16] MEDS: LETAIRIS 10 MG PO SCH (09:56)
[2018-03-16] MEDS: ADCIRCA 20 MG PO SCH (09:56)
[2018-03-16 13:30] LABS: FOLATE 19.5 ng/mL
[2018-03-16] MEDS: Vancomycin 25 MG/ML PO SCH ×2 (17:42→21:51)
[2018-03-17 07:31] LABS: BASO % 0.5 % (0.0-3.0); EOS % 6.4 % (1.5-5.0); GRAN % 61.1 % (50.0-68.0); HEMOGLOBIN 11.2 g/dL (12.0-16.0); LYMPH % 11.8 % (22.0-35.0); MEAN CELL VOLUME 86.7 fl (80.0-105.0); MEAN CORPUSCULAR HEMOGLOBIN 27.1 pg (25.0-35.0); MEAN CORPUSCULAR HGB CONC 31.2 g/dl (31.0-37.0); MEAN PLATELET VOLUME 9.2 fl (7.0-11.0); MONO % 20.2 % (1.0-6.0); RBC 4.14 10^6/uL (3.5-6.1); RED CELL DISTRIBUTION WIDTH 19.6 % (11.5-14.5); WHITE BLOOD COUNT 5.9 10^3/ul (4.5-11.0)
[2018-03-17 07:32] LABS: BASO # 0.03 K/mm3 (0.0-2.0); EOS # 0.4 (0.0-0.7); GRAN # 3.63 (1.4-6.5); LYMPH # 0.7 (1.2-3.4); MONO # 1.2 (0.1-0.6)
[2018-03-17 07:54] LABS: ALBUMIN 2.9 g/dL (3.0-4.8); ALT/SGPT 23 U/L (7-56); AST/SGOT 40 U/L (14-36); BLOOD UREA NITROGEN 9 mg/dL (7-21); CALCIUM 8.1 mg/dL (8.4-10.5); GFR AFRICAN-AMERICAN > 60; GFR NON-AFRICAN AMERICAN > 60
--- NOTE | 2018-03-17 08:49 | CARD ---
APPROVED REPORT EKG Measurement Heart [id number] <Conclusion> Normal sinus rhythm with sinus arrhythmia Right bundle branch block Possible Anteroseptal infarct, age- Old.
[2018-03-17 09:12] VITALS: BP 106/59; PULSE 80; RESP 18; TEMP 97.6; O2SAT 95
[2018-03-17] MEDS: LETAIRIS 10 MG PO SCH (09:42)
[2018-03-17] MEDS: ADCIRCA 20 MG PO SCH (09:43)
[2018-03-17] MEDS: Cholecalciferol 1,000 INTLU TAB PO SCH (09:46)
[2018-03-17] MEDS: Vancomycin 25 MG/ML PO SCH ×2 (09:49→14:30)
--- NOTE | 2018-03-17 10:36 | CON ---
DATE: 03/16/2018 PULMONARY CONSULTATION REFERRING PHYSICIAN: Dr. Kirby. REASON FOR CONSULT: Chronic lung disease, pulmonary hypertension, sleep apnea syndrome; history of lung cancer, requiring lobectomy, scleroderma. HISTORY OF PRESENT ILLNESS: This is a 67-year-old female with severe pulmonary hypertension, on pulmonary vasodilator, anemia, scleroderma on Rituxan; leg swelling, hypertension, also had a rheumatoid arthritis; history of lung cancer requiring lobectomy in the past; comes in because of recurrent/persistent diarrhea. Failed outpatient treatment. Presently, lying in the bed. Has short of breath with exertion. No hemoptysis. No hematemesis. No hematuria. No significant abdominal pain. Does have a leg swelling though. PAST MEDICAL HISTORY: As per history present illness. ALLERGIES: NONE KNOWN. SOCIAL HISTORY: Denying any active smoking. Denying any alcohol use. MEDICATIONS: She takes Rituxan as an outpatient from the pail tester, also presently placed on D5 normal saline 100 mL per hour, Ecotrin 81 mg daily. She is taking Letairis and Adcirca at home, Lipitor 40 mg daily, methotrexate 20 mg weekly, Norvasc 5 mg daily, Protonix 40 mg daily, vancomycin 250 four times daily started, vitamin D 2000 International Units daily. REVIEW OF SYSTEMS: No headache. No rhinitis. Not much cough. Short of breath with exertion. Has a chronic diffuse rash. No chest pain. No nausea. No vomiting. No significant abdominal pain. Has a diarrhea. Does have a leg swelling. PHYSICAL EXAMINATION: GENERAL: Lying in the bed, in no acute distress. VITAL SIGNS: Temp is 98, heart rate is 80, respiratory rate is 20, blood pressure 114/56, pulse ox 98% room air. HEENT: Small oral cavity. Crowded airway. Has a facial rash. NECK: Supple. No JVD. LUNGS: Have a few scattered rhonchi. HEART: S1 and S2. ABDOMEN: Soft, nontender. No organomegaly. EXTREMITIES: Has edema. NEUROLOGIC: Awake, alert. Follows simple command. LABORATORY DATA: Shows hemoglobin 11.2, hematocrit 35.3, WBC 4.7, platelet is 184. Sodium 132, potassium 3.2, chloride 99, bicarbonate 24, BUN 13, creatinine 0.7, glucose 83 and calcium 8. AST 40, ALT 26, alk phos is 113, albumin is 2.9. Vitamin B12 is over 1000, folate is 19.5 and ferritin 155. She has a CAT scan of the abdomen done, which shows [id number] amount of free fluid, highly suspicious of colitis involving the left hemicolon; wall thickening of the distal stomach, which could be secondary to underdistention versus focal gastritis, mild subcutaneous edema and anasarca. There is some enhancing margin of the left lung base, which seems stable compared to prior CT. . IMPRESSION AND PLAN: Colitis with severe diarrhea, history of lung cancer requiring lobectomy in the past, chronic lung disease, pulmonary hypertension, scleroderma, rheumatoid arthritis, anemia, diffuse chronic rash, immunocompromise, on methotrexate and also on Rituxan as an outpatient. Spoke to nursing staff. Also spoke to at bedside. All the questions answered. She also has sleep apnea syndrome, but refusing to use continuous positive airway pressure and bilevel positive airway pressure, understands risk-benefit ratio. We will restart her Adcirca and Letairis. GI consult. Continue IV fluids. Careful with fluid overloaded and shortness of breath because of severe pulmonary hypertension. Follow up labs in the morning. Thank you and we will follow with you. Giorgi Ramirez MD
--- NOTE | 2018-03-17 12:06 | CP.PCM.DIS ---
<Angela Castaneda - Last Filed: 03/17/18 13:22> Provider - Provider Date of Admission: 03/15/18 23:46 Attending physician: Melita Funez MD Primary care physician: Sivakumar Kirby MD Consults: GI: Kathleen Pulmonary: James Time Spent in preparation of Discharge (in minutes): 32 Hospital Course - Lab Results Lab Results: Most Recent Lab Values WBC 5.9 10^3/ul (4.5-11.0) D 03/17/18 07:00 RBC 4.14 10^6/uL (3.5-6.1) 03/17/18 07:00 Hgb 11.2 g/dL (12.0-16.0) L 03/17/18 07:00 Hct 35.9 % (36.0-48.0) L 03/17/18 07:00 MCV 86.7 fl (80.0-105.0) 03/17/18 07:00 MCH 27.1 pg (25.0-35.0) 03/17/18 07:00 MCHC 31.2 g/dl (31.0-37.0) 03/17/18 07:00 RDW 19.6 % (11.5-14.5) H 03/17/18 07:00 Plt Count 209 10^3/uL (120.0-450.0) 03/17/18 07:00 MPV 9.2 fl (7.0-11.0) 03/17/18 07:00 Gran % 61.1 % (50.0-68.0) 03/17/18 07:00 Lymph % (Auto) 11.8 % (22.0-35.0) L 03/17/18 07:00 Story % (Auto) 20.2 % (1.0-6.0) H 03/17/18 07:00 Eos % (Auto) 6.4 % (1.5-5.0) H 03/17/18 07:00 Baso % (Auto) 0.5 % (0.0-3.0) 03/17/18 07:00 Gran # 3.63 (1.4-6.5) 03/17/18 07:00 Lymph # (Auto) 0.7 (1.2-3.4) L 03/17/18 07:00 Story # (Auto) 1.2 (0.1-0.6) H 03/17/18 07:00 Eos # (Auto) 0.4 (0.0-0.7) 03/17/18 07:00 Baso # (Auto) 0.03 K/mm3 (0.0-2.0) 03/17/18 07:00 Neutrophils % (Manual) 60 % (50.0-70.0) 03/16/18 07:00 Band Neutrophils % 1 % (0-2) 03/16/18 07:00 Lymphocytes % (Manual) 14 % (22.0-35.0) L 03/16/18 07:00 Monocytes % (Manual) 16 % (1.0-6.0) H 03/16/18 07:00 Eosinophils % (Manual) 9 % (0.0-3.0) H 03/16/18 07:00 Platelet Evaluation Normal (NORMAL) 03/16/18 07:00 Poikilocytosis (manual Slight 03/16/18 07:00 Anisocytosis (manual) Slight 03/16/18 07:00 Schistocytes Slight 03/16/18 07:00 Retic Count 1.22 % (0.5-1.5) 03/16/18 07:00 Haptoglobin 114.0 mg/dL (30.0-200.0) 03/16/18 07:00 PT 16.2 SECONDS (9.4-12.5) H 03/15/18 20:10 INR 1.41 (0.93-1.08) H 03/15/18 20:10 APTT 33.1 Seconds (25.1-36.5) 03/15/18 20:10 Sodium 136 mmol/L (132-148) 03/17/18 07:00 Potassium 3.6 mmol/L (3.6-5.0) 03/17/18 07:00 Chloride 102 mmol/L (98-107) 03/17/18 07:00 Carbon Dioxide 26 mmol/L (21-33) 03/17/18 07:00 Anion Gap 11 (10-20) 03/17/18 07:00 BUN 9 mg/dL (7-21) 03/17/18 07:00 Creatinine 0.6 mg/dl (0.7-1.2) L 03/17/18 07:00 Est GFR ( Amer) > 60 03/17/18 07:00 Est GFR (Non-Af Amer) > 60 03/17/18 07:00 Random Glucose 89 mg/dL (70-110) 03/17/18 07:00 Calcium 8.1 mg/dL (8.4-10.5) L 03/17/18 07:00 Iron 18 ug/dL (45-180) L 03/15/18 20:10 TIBC 196 ug/dL (265-497) L 03/15/18 20:10 % Saturation 9 % (20-55) L 03/15/18 20:10 Ferritin 155.0 ng/mL 03/15/18 20:10 Total Bilirubin 0.4 mg/dL (0.2-1.3) 03/17/18 07:00 AST 40 U/L (14-36) H 03/17/18 07:00 ALT 23 U/L (7-56) 03/17/18 07:00 Alkaline Phosphatase 102 U/L (38-126) 03/17/18 07:00 Total Creatine Kinase 145 U/L (35-230) 03/15/18 20:10 Troponin I 0.03 ng/mL D 03/15/18 20:10 Total Protein 5.9 g/dL (5.8-8.3) 03/17/18 07:00 Albumin 2.9 g/dL (3.0-4.8) L 03/17/18 07:00 Globulin 3.0 gm/dL 03/17/18 07:00 Albumin/Globulin Ratio 1.0 (1.1-1.8) L 03/17/18 07:00 Lipase 389 U/L (23-300) H 03/15/18 20:10 Vitamin B12 > 1000 pg/mL (239-931) H 03/15/18 20:10 Folate 19.5 ng/mL 03/15/18 20:10 Stool Occult Blood Positive (NEGATIVE) H 03/16/18 21:30 - Hospital Course Hospital Course: History of Present Illness: Patient is a 67 year old female with a PMHx of severe Pulmonary HTN, venous stasis, scleroderma and rheumatoid arthritis who presents complaining of diarrhea x 6 days. Patient states the diarrhea started on Tuesday. It is associated with sharp abdominal pain when she is about to have a bowel movement. Patient tried Immodium and Pepto-Bismol for her symptoms without any relief. Patient went [facility] for the pain when it started. Per the E.R doctor, the patient refused CT abdomen/pelvis at the time. Patient was discharged from the E.R and sent home to follow up with her PMD (Dr. Kirby ) which she did. Stool samples were collected from her primary, but her primary decided that she should go to the E.R again for further evaluation. Patient did state she had one bowel movement in which she saw a red mucous substance but denies seeing anything abnormal in subsequent bowel movements. Patient denies any fever, chills, sick contacts, recent travel, changes in diet , recent antibiotic use, chronic NSAID use, or urinary symptoms. Of note, patient states that her abdomen has been more distended within the last couple of months. Patient reported taking antibiotics recently for sinusitis, unsure which one prior to onset of symptoms. Hospital Course: Patient was admitted for C diff colitis. C diff collected outpatient was positive. Patient was started on Vancomycin 250mg PO QID. CT Abd/pelvis showed small to moderate amount of free fluid, findings highly suspicious for colitis, involving the left hemicolon, wall thickening of the distal stomach, which could be secondary to underdistention versus focal gastritis, Pleural collection with enhancing margins in the left lung base. GI was consulted and following. Patient with normacytic anemia, likely multifactorial. Anemia workup suggesting iron deficient component. Stool occult was positive, no active signs of bleeding. Hgb is stable. Will recommend outpatient management. Patient was doing well, no longer having diarrhea. Bowel movements were formed. Well-hydrated. Denies headaches, dizziness, cp, palpitations, sob, abdominal pain, urinary symptoms. Patient medically stable for discharge home. Will have patient continue antibiotics. Repeat C Diff pending. Follow up with PMD, GI outpatient. Patient will also follow up with Pulmonary upon discharge. Discharge Medications: Vancomycin 250mg PO QID x 13 days Discharge Exam - Head Exam Head Exam: ATRAUMATIC, NORMOCEPHALIC - Eye Exam Eye Exam: EOMI, Normal appearance Pupil Exam: NORMAL ACCOMODATION - ENT Exam ENT Exam: Mucous Membranes Moist - Respiratory Exam Respiratory Exam: Clear to PA & Lateral, NORMAL BREATHING PATTERN, UNREMARKABLE. absent: Rales, Rhonchi, Wheezes - Cardiovascular Exam Cardiovascular Exam: REGULAR RHYTHM, +S1, +S2 - GI/Abdominal Exam GI & Abdominal Exam: Normal Bowel Sounds, Soft, Unremarkable. absent: Guarding , Rebound, Rigid, Tenderness - Extremities Exam Extremities exam: normal inspection - Neurological Exam Neurological exam: Alert, Oriented x3 - Psychiatric Exam Psychiatric exam: Normal Affect, Normal Mood - Skin Skin Exam: Dry, Normal Color, Warm Discharge Plan - Discharge Medications Prescriptions: Vancomycin HCl [Vancocin HCl] 250 mg PO QID 13 Days #52 capsule - Follow Up Plan Condition: IMPROVED Disposition: HOME/ ROUTINE Instructions: Systemic Scleroderma, High Cholesterol, Ulcerative Colitis in Adults, High Blood Pressure in Adults, Clostridium difficile Additional Instructions: 1. Patient is clear for discharge home 2. Please continue antibiotics as prescribed 3. Follow up with with Dr Kirby within 1 week 4. Follow up with GI and Pulmonary outpatient Referrals: Sivakumar Kirby MD [Primary Care Provider] - <Melita Funez - Last Filed: 03/17/18 14:44> Provider - Provider Date of Admission: 03/15/18 23:46 Attending physician: Melita Funez MD Primary care physician: Sivakumar Kirby MD Time Spent in preparation of Discharge (in minutes): 35 Hospital Course - Lab Results Lab Results: Micro Results 03/16/18 21:30 Stool C. difficile Antigen & Toxin A,B (M - Final Most Recent Lab Values WBC 5.9 10^3/ul (4.5-11.0) D 03/17/18 07:00 RBC 4.14 10^6/uL (3.5-6.1) 03/17/18 07:00 Hgb 11.2 g/dL (12.0-16.0) L 03/17/18 07:00 Hct 35.9 % (36.0-48.0) L 03/17/18 07:00 MCV 86.7 fl (80.0-105.0) 03/17/18 07:00 MCH 27.1 pg (25.0-35.0) 03/17/18 07:00 MCHC 31.2 g/dl (31.0-37.0) 03/17/18 07:00 RDW 19.6 % (11.5-14.5) H 03/17/18 07:00 Plt Count 209 10^3/uL (120.0-450.0) 03/17/18 07:00 MPV 9.2 fl (7.0-11.0) 03/17/18 07:00 Gran % 61.1 % (50.0-68.0) 03/17/18 07:00 Lymph % (Auto) 11.8 % (22.0-35.0) L 03/17/18 07:00 Story % (Auto) 20.2 % (1.0-6.0) H 03/17/18 07:00 Eos % (Auto) 6.4 % (1.5-5.0) H 03/17/18 07:00 Baso % (Auto) 0.5 % (0.0-3.0) 03/17/18 07:00 Gran # 3.63 (1.4-6.5) 03/17/18 07:00 Lymph # (Auto) 0.7 (1.2-3.4) L 03/17/18 07:00 Story # (Auto) 1.2 (0.1-0.6) H 03/17/18 07:00 Eos # (Auto) 0.4 (0.0-0.7) 03/17/18 07:00 Baso # (Auto) 0.03 K/mm3 (0.0-2.0) 03/17/18 07:00 Neutrophils % (Manual) 60 % (50.0-70.0) 03/16/18 07:00 Band Neutrophils % 1 % (0-2) 03/16/18 07:00 Lymphocytes % (Manual) 14 % (22.0-35.0) L 03/16/18 07:00 Monocytes % (Manual) 16 % (1.0-6.0) H 03/16/18 07:00 Eosinophils % (Manual) 9 % (0.0-3.0) H 03/16/18 07:00 Platelet Evaluation Normal (NORMAL) 03/16/18 07:00 Poikilocytosis (manual Slight 03/16/18 07:00 Anisocytosis (manual) Slight 03/16/18 07:00 Schistocytes Slight 03/16/18 07:00 Retic Count 1.22 % (0.5-1.5) 03/16/18 07:00 Haptoglobin 114.0 mg/dL (30.0-200.0) 03/16/18 07:00 PT 16.2 SECONDS (9.4-12.5) H 03/15/18 20:10 INR 1.41 (0.93-1.08) H 03/15/18 20:10 APTT 33.1 Seconds (25.1-36.5) 03/15/18 20:10 Sodium 136 mmol/L (132-148) 03/17/18 07:00 Potassium 3.6 mmol/L (3.6-5.0) 03/17/18 07:00 Chloride 102 mmol/L (98-107) 03/17/18 07:00 Carbon Dioxide 26 mmol/L (21-33) 03/17/18 07:00 Anion Gap 11 (10-20) 03/17/18 07:00 BUN 9 mg/dL (7-21) 03/17/18 07:00 Creatinine 0.6 mg/dl (0.7-1.2) L 03/17/18 07:00 Est GFR ( Amer) > 60 03/17/18 07:00 Est GFR (Non-Af Amer) > 60 03/17/18 07:00 Random Glucose 89 mg/dL (70-110) 03/17/18 07:00 Calcium 8.1 mg/dL (8.4-10.5) L 03/17/18 07:00 Iron 18 ug/dL (45-180) L 03/15/18 20:10 TIBC 196 ug/dL (265-497) L 03/15/18 20:10 % Saturation 9 % (20-55) L 03/15/18 20:10 Ferritin 155.0 ng/mL 03/15/18 20:10 Total Bilirubin 0.4 mg/dL (0.2-1.3) 03/17/18 07:00 AST 40 U/L (14-36) H 03/17/18 07:00 ALT 23 U/L (7-56) 03/17/18 07:00 Alkaline Phosphatase 102 U/L (38-126) 03/17/18 07:00 Total Creatine Kinase 145 U/L (35-230) 03/15/18 20:10 Troponin I 0.03 ng/mL D 03/15/18 20:10 Total Protein 5.9 g/dL (5.8-8.3) 03/17/18 07:00 Albumin 2.9 g/dL (3.0-4.8) L 03/17/18 07:00 Globulin 3.0 gm/dL 03/17/18 07:00 Albumin/Globulin Ratio 1.0 (1.1-1.8) L 03/17/18 07:00 Lipase 389 U/L (23-300) H 03/15/18 20:10 Vitamin B12 > 1000 pg/mL (239-931) H 03/15/18 20:10 Folate 19.5 ng/mL 03/15/18 20:10 Stool Occult Blood Positive (NEGATIVE) H 03/16/18 21:30 Attending/Attestation - Attestation I have personally seen and examined this patient.: Yes I have fully participated in the care of the patient.: Yes I have reviewed all pertinent clinical information, including history, physical exam and plan: Yes Notes (Text): 03/17/18 14:39 67 year old female with past medical history of pulmonary hypertension, scleroderma and RA who presented with complaint of diarhhrea. CT abd/pelvis showed colitis. Outpatient CDif study was positive. She was on flagyl which was switched to po vanco with improvement of diarrhea. CT also showed chronic pleural collection which is stable from prior imaging. She denied cough or dyspnea. She was seen by pulmonary. Patient will be discharged home to follow up with pmd. Case was discussed with Dr. Kirby. Continue with po vanco. Follow up with pulmonary. Follow up [facility] GI. Melita Funez MD Hospitalist.
--- NOTE | 2018-03-17 19:13 | PN ---
DATE: 03/17/2018 PULMONARY PROGRESS NOTE REFERRING PHYSICIAN: Vivi Herrera MD. SUBJECTIVE: She is lying in the bed, head at 45 degrees. Feels a little better. No headache, no rhinitis. Gets short of breath with minimal exertion. No nausea, no vomiting. Still has a diarrhea, but decreased in frequency, trace leg swelling. OBJECTIVE: GENERAL: In no acute distress. VITAL SIGNS: Temperature is 98, heart rate is 80, respiratory rate is 18, blood pressure 106/59, pulse ox 95% on room air. HEENT: Moist mucous membrane. Crowded airway. Mallampati score is 4. NECK: Supple. No JVD. LUNGS: Have a few crackles at the bases. HEART: S1 and S2. ABDOMEN: Soft, nontender, no organomegaly. EXTREMITIES: Does have edema. NEUROLOGICAL: Awake, alert, follows simple command. MEDICATIONS: Reviewed and noted. Patient is placed on vancomycin 250 mg q.i.d. No other changes reported. LABORATORY DATA: Shows hemoglobin 11.2, hematocrit 35.9, WBC 5.9, platelet is 209. Sodium 136, potassium 3.6, chloride 102, bicarbonate 26, BUN is 9, creatinine 0.6, glucose 89, calcium is 8.1. AST 40, ALT 23, alk phos is 102. Albumin is 2.9. Vitamin B12 is 1000. Folate is 19.5, lipase is 389. Stool for C. diff specimen in the hospital is negative. IMPRESSION AND PLAN: Colitis with diarrhea, history of lung cancer requiring lobectomy in the past, chronic lung disease, pulmonary hypertension, scleroderma, rheumatoid arthritis, anemia, recurrent rash, immunocompromised on methotrexate and Rituxan. Pulmonary point of view, doing well. Continue bronchodilator, keep head at 45 degrees. Continue pulmonary vasodilator, sleep apnea precaution, avoid sedation. ID and GI followup. Follow up labs. Thank you and we will follow with you. Giorgi Ramirez MD
== END 2018-03-17 16:35 | disposition home or self-care (01) | DRG 373 ==
LOC: ED 18:49 → ERH 23:46 → 5RNO 03-16 02:32
PROVIDERS: ADMIT Internal Medicine; ATTEND Internal Medicine
DX: A04.72 Enterocolitis due to Clostridium difficile, not specified as recurrent (principal); M06.9 Rheumatoid arthritis, unspecified; I27.20 Pulmonary hypertension, unspecified; I87.2 Venous insufficiency (chronic) (peripheral); M34.9 Systemic sclerosis, unspecified; D64.9 Anemia, unspecified; I10 Essential (primary) hypertension; Z85.118 Personal history of other malignant neoplasm of bronchus and lung; Z79.899 Other long term (current) drug therapy

== ENCOUNTER 2019-02-16 12:48 | Outpatient (CLI) | payer MEDICARE, BC | END 2019-02-16 12:49 | disposition home or self-care (01) | LOC: RAD 12:48 ==

== ENCOUNTER 2019-03-07 14:31 | Outpatient (CLI) | payer MEDICARE, BC | END 2019-03-07 14:32 | disposition home or self-care (01) | LOC: RAD 14:31 ==